=== PATIENT | female | born 1985 | race Caucasian/White ===

== ENCOUNTER 2016-10-08 10:26 | Emergency (ER) | payer OTHER ==
[2016-10-08 12:06] LABS: HEMOGLOBIN 12.9 gm/dl (12.3-15.3); RED BLOOD COUNT 4.62 M/UL (4.00-5.10)
[2016-10-08 12:24] LABS: BUN/CREATININE RATIO 11 (0-10)
== END 2016-10-08 19:00 | disposition home or self-care (01) ==
LOC: ER1 10:26 → ZEROF 18:35 → ER1 18:35
PROVIDERS: Physician Assistant
DX: L02.211 Cutaneous abscess of abdominal wall (principal); N61.1 Abscess of the breast and nipple; Z90.49 Acquired absence of other specified parts of digestive tract
CPT/HCPCS: 10061; 36415; 80053; 81001; 83605; 83690; 84703; 85025; 87040; 87070; 87205; 96361; 96365; 96375; 96376; 99284; J2270; J2405; J7030; Q9962

== ENCOUNTER 2021-01-22 12:01 | Emergency (ER) | payer OTHER | END 2021-01-22 12:33 | disposition home or self-care (01) | LOC: ER1 12:01 | DX: S61.216A Laceration without foreign body of right little finger without damage to nail, initial encounter (principal); W26.8XXA Contact with other sharp object(s), not elsewhere classified, initial encounter | CPT/HCPCS: 12001; 99283 ==

== ENCOUNTER 2021-06-14 11:17 | Emergency (ER) | payer OTHER ==
[2021-06-14 13:02] LABS: RED BLOOD COUNT 4.71 M/UL (4.00-5.10); WHITE BLOOD COUNT 13.7 K/UL (4.5-11.0)
[2021-06-14 13:19] LABS: BUN/CREATININE RATIO 10 (0-10)
== END 2021-06-14 14:15 | disposition left against medical advice (07) ==
LOC: ER1 11:17
PROVIDERS: Physician Assistant Medical
DX: U07.1 COVID-19 (principal); J12.82 Pneumonia due to coronavirus disease 2019; J96.91 Respiratory failure, unspecified with hypoxia; E78.00 Pure hypercholesterolemia, unspecified; I25.10 Atherosclerotic heart disease of native coronary artery without angina pectoris; J45.909 Unspecified asthma, uncomplicated
CPT/HCPCS: 80053; 85025; 86140; 99283; Q9967; U0002

== ENCOUNTER 2021-11-02 10:10 | Emergency (ER) | payer OTHER | END 2021-11-02 12:14 | disposition home or self-care (01) | LOC: ER1 10:10 | DX: S39.012A Strain of muscle, fascia and tendon of lower back, initial encounter (principal); S86.912A Strain of unspecified muscle(s) and tendon(s) at lower leg level, left leg, initial encounter; S56.912A Strain of unspecified muscles, fascia and tendons at forearm level, left arm, initial encounter; I51.9 Heart disease, unspecified; I48.91 Unspecified atrial fibrillation; F17.210 Nicotine dependence, cigarettes, uncomplicated; W01.10XA Fall on same level from slipping, tripping and stumbling with subsequent striking against unspecified object, initial encounter; Y92.009 Unspecified place in unspecified non-institutional (private) residence as the place of occurrence of the external cause | CPT/HCPCS: 73030; 73080; 73564; 81001; 84703; 99283 ==

== ENCOUNTER 2022-01-23 20:42 | Emergency (ER) | payer OTHER ==
[2022-01-23 21:38] LABS: HEMOGLOBIN 13.6 gm/dl (12.3-15.3); RED BLOOD COUNT 4.52 M/UL (4.00-5.10)
[2022-01-23 21:57] LABS: BUN/CREATININE RATIO 18 (0-10)
== END 2022-01-23 23:22 | disposition left against medical advice (07) ==
LOC: ER1 20:42
PROVIDERS: Student in an Organized Health Care Education/Training Program
DX: R11.0 Nausea (principal); F17.210 Nicotine dependence, cigarettes, uncomplicated; Z20.822 Contact with and (suspected) exposure to COVID-19
CPT/HCPCS: 0240U; 80053; 85025; 99281